=== PATIENT | female | born 1980 | race Caucasian/White ===

== ENCOUNTER 2019-04-15 21:33 | Emergency (ER) | payer SELFPAY, OTHER ==
[2019-04-15] MEDS: DEXAMETHASONE 4 MG TAB PO (22:31)
[2019-04-15] MEDS: IBUPROFEN 600 MG TAB PO (22:31)
[2019-04-15] MEDS: CIPROFLOXACIN HCL OTIC DROP 0.25 ML RIGHT EAR (22:31)
== END 2019-04-15 23:03 | disposition home or self-care (01) ==
LOC: FTE 21:33
DX: H60.501 Unspecified acute noninfective otitis externa, right ear (principal); R19.7 Diarrhea, unspecified
CPT/HCPCS: 99283